=== PATIENT | male | born 1980 | race American Indian/Alaskan Native ===

== ENCOUNTER 2017-05-23 09:15 | Outpatient (CLI) | payer MEDICARE | END 2017-05-23 09:16 | disposition home or self-care (01) | LOC: WOUND 09:15 | PROVIDERS: ATTEND Podiatrist | DX: L89.893 Pressure ulcer of other site, stage 3 (principal); L97.512 Non-pressure chronic ulcer of other part of right foot with fat layer exposed; L97.522 Non-pressure chronic ulcer of other part of left foot with fat layer exposed; G82.21 Paraplegia, complete; F17.200 Nicotine dependence, unspecified, uncomplicated | CPT/HCPCS: 11042; G0463 ==

== ENCOUNTER 2017-05-30 12:56 | Outpatient (CLI) | payer MEDICARE | END 2017-05-30 12:57 | disposition home or self-care (01) | LOC: WOUND 12:56 | PROVIDERS: ATTEND Podiatrist | DX: L89.893 Pressure ulcer of other site, stage 3 (principal); L97.512 Non-pressure chronic ulcer of other part of right foot with fat layer exposed; L89.892 Pressure ulcer of other site, stage 2; L97.522 Non-pressure chronic ulcer of other part of left foot with fat layer exposed; G82.21 Paraplegia, complete; F17.200 Nicotine dependence, unspecified, uncomplicated ==

== ENCOUNTER 2017-06-06 09:19 | Outpatient (CLI) | payer MEDICARE | END 2017-06-06 09:20 | disposition home or self-care (01) | LOC: WOUND 09:19 | PROVIDERS: ATTEND Podiatrist | DX: L89.893 Pressure ulcer of other site, stage 3 (principal); L97.511 Non-pressure chronic ulcer of other part of right foot limited to breakdown of skin; G82.21 Paraplegia, complete; M20.41 Other hammer toe(s) (acquired), right foot; M20.42 Other hammer toe(s) (acquired), left foot; F17.200 Nicotine dependence, unspecified, uncomplicated | CPT/HCPCS: 97597 ==

== ENCOUNTER 2017-06-11 13:34 | Outpatient (CLI) | payer MEDICARE ==
--- NOTE | 2017-06-11 15:59 | XRay Report ---
FINAL REPORT EXAM: XR FOOT 3+V RT HISTORY: INJURY TO RIGHT BIG TOE AND SECOND TECHNIQUE: Five views right foot were performed FINDINGS: Bones are severely demineralized. There is wrapping obscuring portions of the 2nd digit. The distal digits are obscured due to positioning. There is no displaced fracture or dislocation identified. IMPRESSION: Limited due to osteopenia and wrapping material. No definite fracture or dislocation.
== END 2017-06-11 13:35 | disposition home or self-care (01) ==
LOC: XRAY 13:34
PROVIDERS: ATTEND Podiatrist
DX: S99.921A Unspecified injury of right foot, initial encounter (principal); M85.871 Other specified disorders of bone density and structure, right ankle and foot; X58.XXXA Exposure to other specified factors, initial encounter; Y93.89 Activity, other specified; Y92.89 Other specified places as the place of occurrence of the external cause; Y99.8 Other external cause status

== ENCOUNTER 2017-06-13 10:34 | Outpatient (CLI) | payer MEDICARE | END 2017-06-13 10:35 | disposition home or self-care (01) | LOC: WOUND 10:34 | PROVIDERS: ATTEND Podiatrist | DX: L97.512 Non-pressure chronic ulcer of other part of right foot with fat layer exposed (principal); L97.522 Non-pressure chronic ulcer of other part of left foot with fat layer exposed; L97.511 Non-pressure chronic ulcer of other part of right foot limited to breakdown of skin; L89.893 Pressure ulcer of other site, stage 3; G82.21 Paraplegia, complete; M20.41 Other hammer toe(s) (acquired), right foot; M20.42 Other hammer toe(s) (acquired), left foot; M79.672 Pain in left foot; M79.671 Pain in right foot; B35.1 Tinea unguium; F17.200 Nicotine dependence, unspecified, uncomplicated | CPT/HCPCS: 11721 ==

== ENCOUNTER 2018-05-19 07:50 | Outpatient (CLI) | payer MEDICARE | END 2018-05-19 07:51 | disposition home or self-care (01) | LOC: WOUND 07:50 | PROVIDERS: ATTEND Surgery | DX: I87.311 Chronic venous hypertension (idiopathic) with ulcer of right lower extremity (principal); L97.512 Non-pressure chronic ulcer of other part of right foot with fat layer exposed; G82.50 Quadriplegia, unspecified; F17.200 Nicotine dependence, unspecified, uncomplicated | CPT/HCPCS: 11042; G0463; 99215 ==

== ENCOUNTER 2018-05-19 08:55 | Outpatient (CLI) | payer MEDICARE ==
--- NOTE | 2018-05-19 10:51 | XRay Report ---
RIGHT FOOT, 3 views: History: Ulcer. Compared to 06/11/17. Subtle ulceration of the distal great toe is suspected. There is severe osteopenia throughout the right foot. Mild diffuse degenerative changes. No obvious fracture or bony destruction. No convincing evidence for osteomyelitis of the great toe IMPRESSION: Subtle ulceration of the distal great toe but no obvious osteomyelitis on x-ray. Severe osteopenia. Degenerative changes.
== END 2018-05-19 08:56 | disposition home or self-care (01) ==
LOC: XRAY 08:55
PROVIDERS: ATTEND Podiatrist
DX: L97.519 Non-pressure chronic ulcer of other part of right foot with unspecified severity (principal); M85.871 Other specified disorders of bone density and structure, right ankle and foot; M19.071 Primary osteoarthritis, right ankle and foot

== ENCOUNTER 2018-05-26 10:22 | Outpatient (CLI) | payer MEDICARE ==
[2018-05-26] MEDS ORDERED: XYLOCAINE TOPICAL 4% TP ONE (10:33)
[2018-05-26] MEDS ORDERED: AD OINTMENT TP PRN (10:34)
[2018-05-26] MEDS ORDERED: SILVER NITRATE TP ONE (10:34)
== END 2018-05-26 10:23 | disposition home or self-care (01) ==
LOC: WOUND 10:22
PROVIDERS: ATTEND Surgery
DX: L97.516 Non-pressure chronic ulcer of other part of right foot with bone involvement without evidence of necrosis (principal); G82.21 Paraplegia, complete; F17.200 Nicotine dependence, unspecified, uncomplicated

== ENCOUNTER 2018-06-01 12:32 | Outpatient (CLI) | payer MEDICARE ==
[2018-06-01 13:15] LABS: BUN/Creatinine Ratio 20; Blood Urea Nitrogen 6 mg/dL (9-20); Calcium 8.9 mg/dL (8.4-10.2); Hemolysis Index 31
--- NOTE | 2018-06-01 15:18 | Vascular Lab Report ---
PROCEDURE: VL ARTERIAL DUPLEX LE RT TECHNIQUE: Duplex Doppler ultrasound of the right lower extremity arteries was performed with image documentation. HISTORY: rt.foot ulcer COMPARISONS: None . FINDINGS: RIGHT LOWER EXTREMITY: Arterial waveforms: Normal triphasic waveforms were seen within the right distal external iliac ron ry through the right posterior tibial artery. Biphasic waveforms were seen within the right anterior tibial and dorsalis pedis arteries. . Thrombus: None . Stenosis: None . Color signal: Normal . Significant segmental velocity differential: None . There is focal fluid within the soft tissues in the region of the right knee. IMPRESSION: 1. No evidence of right lower extremity arterial stenosis. 2. Nonspecific focal fluid within the soft tissues surrounding the right knee was not completely eval uated. Dedicated ultrasound imaging of this area should be considered. This document is electronically signed by Rosy Magaña., June 01 2018 03:16:01 PM ET
== END 2018-06-01 12:33 | disposition home or self-care (01) ==
LOC: VAS 12:32
PROVIDERS: ATTEND Surgery
DX: I87.311 Chronic venous hypertension (idiopathic) with ulcer of right lower extremity (principal); L97.819 Non-pressure chronic ulcer of other part of right lower leg with unspecified severity
CPT/HCPCS: 36415; 80048

== ENCOUNTER 2018-06-02 10:50 | Outpatient (CLI) | payer MEDICARE ==
[2018-06-02] MEDS ORDERED: XYLOCAINE TOPICAL 4% TP NR (11:08)
[2018-06-02] MEDS ORDERED: SILVER NITRATE TP NR (11:09)
== END 2018-06-02 10:51 | disposition home or self-care (01) ==
LOC: WOUND 10:50
PROVIDERS: ATTEND Surgery
DX: L97.516 Non-pressure chronic ulcer of other part of right foot with bone involvement without evidence of necrosis (principal); G82.21 Paraplegia, complete; F17.200 Nicotine dependence, unspecified, uncomplicated

== ENCOUNTER 2018-06-09 11:05 | Outpatient (CLI) | payer MEDICARE ==
[2018-06-09] MEDS ORDERED: XYLOCAINE TOPICAL 4% TP ONE (11:11)
[2018-06-09] MEDS ORDERED: SILVER NITRATE TP ONE (11:11)
== END 2018-06-09 11:06 | disposition home or self-care (01) ==
LOC: WOUND 11:05
PROVIDERS: ATTEND Surgery
DX: L97.516 Non-pressure chronic ulcer of other part of right foot with bone involvement without evidence of necrosis (principal); G82.21 Paraplegia, complete; F17.200 Nicotine dependence, unspecified, uncomplicated

== ENCOUNTER 2018-06-16 11:29 | Outpatient (CLI) | payer MEDICARE ==
[2018-06-16] MEDS ORDERED: XYLOCAINE TOPICAL 4% TP ONE (12:00)
== END 2018-06-16 11:30 | disposition home or self-care (01) ==
LOC: WOUND 11:29
PROVIDERS: ATTEND Surgery
DX: L97.516 Non-pressure chronic ulcer of other part of right foot with bone involvement without evidence of necrosis (principal); G82.21 Paraplegia, complete; F17.200 Nicotine dependence, unspecified, uncomplicated

== ENCOUNTER 2018-06-19 11:02 | Outpatient (CLI) | payer MEDICARE ==
--- NOTE | 2018-06-19 12:20 | XRay Report ---
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 COMPARISON: None similar. FINDINGS: Frontal and lateral chest radiographs demonstrate normal cardiomediastinal silhouette. Clear lungs without pleural effusions or CHF. Lower cervical fusion hardware. CONCLUSION: No acute chest process, as described. Thank you for the opportunity to participate in this patient's care.
== END 2018-06-19 11:03 | disposition home or self-care (01) ==
LOC: XRAY 11:02
PROVIDERS: ATTEND Surgery
DX: L97.516 Non-pressure chronic ulcer of other part of right foot with bone involvement without evidence of necrosis (principal)
CPT/HCPCS: 71046

== ENCOUNTER 2018-06-23 10:25 | Outpatient (CLI) | payer MEDICARE | END 2018-06-23 10:26 | disposition home or self-care (01) | LOC: WOUND 10:25 | PROVIDERS: ATTEND Surgery | DX: L97.516 Non-pressure chronic ulcer of other part of right foot with bone involvement without evidence of necrosis (principal); M86.671 Other chronic osteomyelitis, right ankle and foot; G82.21 Paraplegia, complete; F17.200 Nicotine dependence, unspecified, uncomplicated ==

== ENCOUNTER 2018-07-01 12:11 | Outpatient (CLI) | payer MEDICARE | END 2018-07-01 12:12 | disposition home or self-care (01) | LOC: WOUND 12:11 | PROVIDERS: ATTEND Surgery | DX: L97.516 Non-pressure chronic ulcer of other part of right foot with bone involvement without evidence of necrosis (principal); M86.671 Other chronic osteomyelitis, right ankle and foot; G82.21 Paraplegia, complete; F17.200 Nicotine dependence, unspecified, uncomplicated | CPT/HCPCS: 99183; G0277 ==

== ENCOUNTER 2018-07-02 12:17 | Outpatient (CLI) | payer MEDICARE, MEDICAID | END 2018-07-02 12:18 | disposition home or self-care (01) | LOC: WOUND 12:17 | PROVIDERS: ATTEND Surgery | DX: L97.516 Non-pressure chronic ulcer of other part of right foot with bone involvement without evidence of necrosis (principal); M86.671 Other chronic osteomyelitis, right ankle and foot; G82.21 Paraplegia, complete; F17.200 Nicotine dependence, unspecified, uncomplicated | CPT/HCPCS: 99183; G0277 ==

== ENCOUNTER 2018-07-03 11:51 | Outpatient (CLI) | payer MEDICARE, MEDICAID | END 2018-07-03 11:52 | disposition home or self-care (01) | LOC: WOUND 11:51 | PROVIDERS: ATTEND Surgery | DX: L97.516 Non-pressure chronic ulcer of other part of right foot with bone involvement without evidence of necrosis (principal); M86.671 Other chronic osteomyelitis, right ankle and foot; G82.21 Paraplegia, complete; F17.200 Nicotine dependence, unspecified, uncomplicated | CPT/HCPCS: 99183; G0277 ==

== ENCOUNTER 2018-07-08 12:48 | Outpatient (CLI) | payer MEDICARE, MEDICAID | END 2018-07-08 12:49 | disposition home or self-care (01) | LOC: WOUND 12:48 | PROVIDERS: ATTEND Surgery | DX: L97.516 Non-pressure chronic ulcer of other part of right foot with bone involvement without evidence of necrosis (principal); G82.21 Paraplegia, complete; M86.671 Other chronic osteomyelitis, right ankle and foot; F17.200 Nicotine dependence, unspecified, uncomplicated | CPT/HCPCS: 11042; G0277; 99183 ==

== ENCOUNTER 2018-07-14 13:56 | Outpatient (CLI) | payer MEDICARE, MEDICAID | END 2018-07-14 13:57 | disposition home or self-care (01) | LOC: WOUND 13:56 | PROVIDERS: ATTEND Surgery | DX: I70.235 Atherosclerosis of native arteries of right leg with ulceration of other part of foot (principal); L97.516 Non-pressure chronic ulcer of other part of right foot with bone involvement without evidence of necrosis; G82.21 Paraplegia, complete; M86.671 Other chronic osteomyelitis, right ankle and foot; F17.200 Nicotine dependence, unspecified, uncomplicated | CPT/HCPCS: 99183; G0277 ==

== ENCOUNTER 2018-07-16 13:24 | Outpatient (CLI) | payer MEDICARE, MEDICAID | END 2018-07-16 13:25 | disposition home or self-care (01) | LOC: WOUND 13:24 | PROVIDERS: ATTEND Surgery | DX: L97.516 Non-pressure chronic ulcer of other part of right foot with bone involvement without evidence of necrosis (principal); G82.21 Paraplegia, complete; M86.671 Other chronic osteomyelitis, right ankle and foot; F17.200 Nicotine dependence, unspecified, uncomplicated | CPT/HCPCS: 99183; G0277 ==

== ENCOUNTER 2018-07-17 11:59 | Outpatient (CLI) | payer MEDICARE | END 2018-07-17 12:00 | disposition home or self-care (01) | LOC: WOUND 11:59 | PROVIDERS: ATTEND Surgery | DX: L97.516 Non-pressure chronic ulcer of other part of right foot with bone involvement without evidence of necrosis (principal); G82.21 Paraplegia, complete; M86.671 Other chronic osteomyelitis, right ankle and foot; F17.200 Nicotine dependence, unspecified, uncomplicated | CPT/HCPCS: 99183; G0277 ==

== ENCOUNTER 2018-07-20 12:39 | Outpatient (CLI) | payer MEDICARE | END 2018-07-20 12:40 | disposition home or self-care (01) | LOC: WOUND 12:39 | PROVIDERS: ATTEND Surgery | DX: L97.516 Non-pressure chronic ulcer of other part of right foot with bone involvement without evidence of necrosis (principal); G82.21 Paraplegia, complete; M86.671 Other chronic osteomyelitis, right ankle and foot; F17.200 Nicotine dependence, unspecified, uncomplicated | CPT/HCPCS: 99183; G0277 ==

== ENCOUNTER 2018-07-21 12:45 | Outpatient (CLI) | payer MEDICARE | END 2018-07-21 12:46 | disposition home or self-care (01) | LOC: WOUND 12:45 | PROVIDERS: ATTEND Surgery | DX: L97.516 Non-pressure chronic ulcer of other part of right foot with bone involvement without evidence of necrosis (principal); G82.21 Paraplegia, complete; M86.671 Other chronic osteomyelitis, right ankle and foot; F17.200 Nicotine dependence, unspecified, uncomplicated | CPT/HCPCS: 99183; G0277 ==

== ENCOUNTER 2018-07-22 12:30 | Outpatient (CLI) | payer MEDICARE | END 2018-07-22 12:31 | disposition home or self-care (01) | LOC: WOUND 12:30 | PROVIDERS: ATTEND Surgery | DX: I70.235 Atherosclerosis of native arteries of right leg with ulceration of other part of foot (principal); L97.516 Non-pressure chronic ulcer of other part of right foot with bone involvement without evidence of necrosis; I70.248 Atherosclerosis of native arteries of left leg with ulceration of other part of lower leg; L97.821 Non-pressure chronic ulcer of other part of left lower leg limited to breakdown of skin; M86.671 Other chronic osteomyelitis, right ankle and foot; G82.21 Paraplegia, complete; G82.20 Paraplegia, unspecified; F17.200 Nicotine dependence, unspecified, uncomplicated | CPT/HCPCS: 99183; G0277 ==

== ENCOUNTER 2018-07-23 12:30 | Outpatient (CLI) | payer MEDICARE | END 2018-07-23 12:31 | disposition home or self-care (01) | LOC: WOUND 12:30 | PROVIDERS: ATTEND Surgery | DX: I70.235 Atherosclerosis of native arteries of right leg with ulceration of other part of foot (principal); L97.516 Non-pressure chronic ulcer of other part of right foot with bone involvement without evidence of necrosis; I70.248 Atherosclerosis of native arteries of left leg with ulceration of other part of lower leg; L97.821 Non-pressure chronic ulcer of other part of left lower leg limited to breakdown of skin; M86.671 Other chronic osteomyelitis, right ankle and foot; G82.21 Paraplegia, complete; G82.20 Paraplegia, unspecified; F17.200 Nicotine dependence, unspecified, uncomplicated | CPT/HCPCS: 99183; G0277 ==

== ENCOUNTER 2018-07-24 12:02 | Outpatient (CLI) | payer MEDICARE, MEDICAID | END 2018-07-24 12:03 | disposition home or self-care (01) | LOC: WOUND 12:02 | PROVIDERS: ATTEND Surgery | DX: I70.235 Atherosclerosis of native arteries of right leg with ulceration of other part of foot (principal); L97.516 Non-pressure chronic ulcer of other part of right foot with bone involvement without evidence of necrosis; I70.248 Atherosclerosis of native arteries of left leg with ulceration of other part of lower leg; L97.821 Non-pressure chronic ulcer of other part of left lower leg limited to breakdown of skin; M86.671 Other chronic osteomyelitis, right ankle and foot; G82.21 Paraplegia, complete; F17.200 Nicotine dependence, unspecified, uncomplicated | CPT/HCPCS: 99183; G0277 ==

== ENCOUNTER 2018-07-27 12:21 | Outpatient (CLI) | payer MEDICARE, MEDICAID | END 2018-07-27 12:22 | disposition home or self-care (01) | LOC: WOUND 12:21 | PROVIDERS: ATTEND Internal Medicine | DX: I70.235 Atherosclerosis of native arteries of right leg with ulceration of other part of foot (principal); L97.516 Non-pressure chronic ulcer of other part of right foot with bone involvement without evidence of necrosis; I70.248 Atherosclerosis of native arteries of left leg with ulceration of other part of lower leg; L97.821 Non-pressure chronic ulcer of other part of left lower leg limited to breakdown of skin; M86.671 Other chronic osteomyelitis, right ankle and foot; G82.21 Paraplegia, complete; F17.200 Nicotine dependence, unspecified, uncomplicated | CPT/HCPCS: 99183; G0277 ==

== ENCOUNTER 2018-07-28 13:06 | Outpatient (CLI) | payer MEDICARE, MEDICAID | END 2018-07-28 13:07 | disposition home or self-care (01) | LOC: WOUND 13:06 | PROVIDERS: ATTEND Surgery | DX: I70.235 Atherosclerosis of native arteries of right leg with ulceration of other part of foot (principal); L97.516 Non-pressure chronic ulcer of other part of right foot with bone involvement without evidence of necrosis; M86.671 Other chronic osteomyelitis, right ankle and foot; G82.21 Paraplegia, complete; F17.200 Nicotine dependence, unspecified, uncomplicated | CPT/HCPCS: 99183; G0277 ==

== ENCOUNTER 2018-07-29 13:01 | Outpatient (CLI) | payer MEDICARE, MEDICAID | END 2018-07-29 13:02 | disposition home or self-care (01) | LOC: WOUND 13:01 | PROVIDERS: ATTEND Surgery | DX: I70.235 Atherosclerosis of native arteries of right leg with ulceration of other part of foot (principal); L97.516 Non-pressure chronic ulcer of other part of right foot with bone involvement without evidence of necrosis; I70.248 Atherosclerosis of native arteries of left leg with ulceration of other part of lower leg; L97.821 Non-pressure chronic ulcer of other part of left lower leg limited to breakdown of skin; M86.671 Other chronic osteomyelitis, right ankle and foot; G82.21 Paraplegia, complete; F17.200 Nicotine dependence, unspecified, uncomplicated | CPT/HCPCS: 99183; G0277 ==

== ENCOUNTER 2018-07-30 12:14 | Outpatient (CLI) | payer MEDICARE, MEDICAID | END 2018-07-30 12:15 | disposition home or self-care (01) | LOC: WOUND 12:14 | PROVIDERS: ATTEND Surgery | DX: I70.235 Atherosclerosis of native arteries of right leg with ulceration of other part of foot (principal); L97.516 Non-pressure chronic ulcer of other part of right foot with bone involvement without evidence of necrosis; I70.248 Atherosclerosis of native arteries of left leg with ulceration of other part of lower leg; L97.821 Non-pressure chronic ulcer of other part of left lower leg limited to breakdown of skin; M86.671 Other chronic osteomyelitis, right ankle and foot; G82.21 Paraplegia, complete; F17.200 Nicotine dependence, unspecified, uncomplicated | CPT/HCPCS: 99183; G0277 ==

== ENCOUNTER 2018-07-31 13:04 | Outpatient (CLI) | payer MEDICARE, MEDICAID | END 2018-07-31 13:05 | disposition home or self-care (01) | LOC: WOUND 13:04 | PROVIDERS: ATTEND Surgery | DX: I70.235 Atherosclerosis of native arteries of right leg with ulceration of other part of foot (principal); L97.516 Non-pressure chronic ulcer of other part of right foot with bone involvement without evidence of necrosis; I70.248 Atherosclerosis of native arteries of left leg with ulceration of other part of lower leg; L97.821 Non-pressure chronic ulcer of other part of left lower leg limited to breakdown of skin; M86.671 Other chronic osteomyelitis, right ankle and foot; G82.21 Paraplegia, complete; F17.200 Nicotine dependence, unspecified, uncomplicated | CPT/HCPCS: 99183; G0277 ==

== ENCOUNTER 2018-08-04 12:30 | Outpatient (CLI) | payer MEDICARE, MEDICAID | END 2018-08-04 12:31 | disposition home or self-care (01) | LOC: WOUND 12:30 | PROVIDERS: ATTEND Surgery | DX: I70.235 Atherosclerosis of native arteries of right leg with ulceration of other part of foot (principal); L97.516 Non-pressure chronic ulcer of other part of right foot with bone involvement without evidence of necrosis; M86.671 Other chronic osteomyelitis, right ankle and foot; G82.21 Paraplegia, complete; F17.200 Nicotine dependence, unspecified, uncomplicated | CPT/HCPCS: 99183; G0277 ==

== ENCOUNTER 2018-08-05 13:33 | Outpatient (CLI) | payer MEDICARE, MEDICAID | END 2018-08-05 13:34 | disposition home or self-care (01) | LOC: WOUND 13:33 | PROVIDERS: ATTEND Surgery | DX: I70.235 Atherosclerosis of native arteries of right leg with ulceration of other part of foot (principal); L97.516 Non-pressure chronic ulcer of other part of right foot with bone involvement without evidence of necrosis; M86.671 Other chronic osteomyelitis, right ankle and foot; G82.21 Paraplegia, complete; F17.200 Nicotine dependence, unspecified, uncomplicated | CPT/HCPCS: 99183; G0277 ==

== ENCOUNTER 2018-08-06 13:27 | Outpatient (CLI) | payer MEDICARE, MEDICAID | END 2018-08-06 13:28 | disposition home or self-care (01) | LOC: WOUND 13:27 | PROVIDERS: ATTEND Surgery | DX: I70.235 Atherosclerosis of native arteries of right leg with ulceration of other part of foot (principal); L97.516 Non-pressure chronic ulcer of other part of right foot with bone involvement without evidence of necrosis; M86.671 Other chronic osteomyelitis, right ankle and foot; G82.21 Paraplegia, complete; F17.200 Nicotine dependence, unspecified, uncomplicated | CPT/HCPCS: 99183; G0277 ==

== ENCOUNTER 2018-08-07 12:30 | Outpatient (CLI) | payer MEDICARE, MEDICAID | END 2018-08-07 12:31 | disposition home or self-care (01) | LOC: WOUND 12:30 | PROVIDERS: ATTEND Surgery | DX: I70.235 Atherosclerosis of native arteries of right leg with ulceration of other part of foot (principal); L97.516 Non-pressure chronic ulcer of other part of right foot with bone involvement without evidence of necrosis; M86.671 Other chronic osteomyelitis, right ankle and foot; G82.21 Paraplegia, complete; F17.200 Nicotine dependence, unspecified, uncomplicated | CPT/HCPCS: 99183; G0277 ==

== ENCOUNTER 2018-08-10 12:56 | Outpatient (CLI) | payer MEDICARE, MEDICAID | END 2018-08-10 12:57 | disposition home or self-care (01) | LOC: WOUND 12:56 | PROVIDERS: ATTEND Surgery | DX: I70.235 Atherosclerosis of native arteries of right leg with ulceration of other part of foot (principal); L97.516 Non-pressure chronic ulcer of other part of right foot with bone involvement without evidence of necrosis; M86.671 Other chronic osteomyelitis, right ankle and foot; G82.21 Paraplegia, complete; F17.200 Nicotine dependence, unspecified, uncomplicated | CPT/HCPCS: 99183; G0277 ==

== ENCOUNTER 2018-08-11 11:18 | Outpatient (CLI) | payer MEDICARE, MEDICAID | END 2018-08-11 11:19 | disposition home or self-care (01) | LOC: WOUND 11:18 | PROVIDERS: ATTEND Surgery | DX: I70.235 Atherosclerosis of native arteries of right leg with ulceration of other part of foot (principal); L97.516 Non-pressure chronic ulcer of other part of right foot with bone involvement without evidence of necrosis; M86.671 Other chronic osteomyelitis, right ankle and foot; G82.21 Paraplegia, complete; F17.200 Nicotine dependence, unspecified, uncomplicated | CPT/HCPCS: 99183; G0277 ==

== ENCOUNTER 2018-08-12 11:07 | Outpatient (CLI) | payer MEDICARE | END 2018-08-12 11:08 | disposition home or self-care (01) | LOC: WOUND 11:07 | PROVIDERS: ATTEND Surgery | DX: I70.235 Atherosclerosis of native arteries of right leg with ulceration of other part of foot (principal); L97.516 Non-pressure chronic ulcer of other part of right foot with bone involvement without evidence of necrosis; M86.671 Other chronic osteomyelitis, right ankle and foot; G82.21 Paraplegia, complete; F17.200 Nicotine dependence, unspecified, uncomplicated | CPT/HCPCS: 11042; G0277; 99183 ==

== ENCOUNTER 2018-08-13 12:30 | Outpatient (CLI) | payer MEDICARE | END 2018-08-13 12:31 | disposition home or self-care (01) | LOC: WOUND 12:30 | PROVIDERS: ATTEND Surgery | DX: I70.235 Atherosclerosis of native arteries of right leg with ulceration of other part of foot (principal); L97.516 Non-pressure chronic ulcer of other part of right foot with bone involvement without evidence of necrosis; M86.671 Other chronic osteomyelitis, right ankle and foot; G82.21 Paraplegia, complete; F17.200 Nicotine dependence, unspecified, uncomplicated | CPT/HCPCS: 99183; G0277 ==

== ENCOUNTER 2018-08-14 12:30 | Outpatient (CLI) | payer MEDICARE | END 2018-08-14 12:31 | disposition home or self-care (01) | LOC: WOUND 12:30 | PROVIDERS: ATTEND Surgery | DX: I70.235 Atherosclerosis of native arteries of right leg with ulceration of other part of foot (principal); L97.516 Non-pressure chronic ulcer of other part of right foot with bone involvement without evidence of necrosis; M86.671 Other chronic osteomyelitis, right ankle and foot; G82.21 Paraplegia, complete; F17.200 Nicotine dependence, unspecified, uncomplicated | CPT/HCPCS: 99183; G0277 ==

== ENCOUNTER 2018-08-17 09:31 | Outpatient (CLI) | payer MEDICARE | END 2018-08-17 09:32 | disposition home or self-care (01) | LOC: WOUND 09:31 | PROVIDERS: ATTEND Surgery | DX: I70.235 Atherosclerosis of native arteries of right leg with ulceration of other part of foot (principal); L97.516 Non-pressure chronic ulcer of other part of right foot with bone involvement without evidence of necrosis; M86.671 Other chronic osteomyelitis, right ankle and foot; G82.21 Paraplegia, complete; F17.200 Nicotine dependence, unspecified, uncomplicated | CPT/HCPCS: 99183; G0277 ==

== ENCOUNTER 2018-08-18 09:50 | Outpatient (CLI) | payer MEDICARE | END 2018-08-18 09:51 | disposition home or self-care (01) | LOC: WOUND 09:50 | PROVIDERS: ATTEND Surgery | DX: I70.235 Atherosclerosis of native arteries of right leg with ulceration of other part of foot (principal); L97.516 Non-pressure chronic ulcer of other part of right foot with bone involvement without evidence of necrosis; M86.671 Other chronic osteomyelitis, right ankle and foot; G82.21 Paraplegia, complete; F17.200 Nicotine dependence, unspecified, uncomplicated | CPT/HCPCS: 99183; G0277 ==

== ENCOUNTER 2018-08-19 10:27 | Outpatient (CLI) | payer MEDICARE, MEDICAID | END 2018-08-19 10:28 | disposition home or self-care (01) | LOC: WOUND 10:27 | PROVIDERS: ATTEND Surgery | DX: I70.235 Atherosclerosis of native arteries of right leg with ulceration of other part of foot (principal); L97.516 Non-pressure chronic ulcer of other part of right foot with bone involvement without evidence of necrosis; M86.671 Other chronic osteomyelitis, right ankle and foot; G82.21 Paraplegia, complete; F17.200 Nicotine dependence, unspecified, uncomplicated | CPT/HCPCS: 99183; G0277 ==

== ENCOUNTER 2018-09-01 09:54 | Outpatient (CLI) | payer MEDICARE, MEDICAID | END 2018-09-01 09:55 | disposition home or self-care (01) | LOC: WOUND 09:54 | PROVIDERS: ATTEND Surgery | DX: I70.235 Atherosclerosis of native arteries of right leg with ulceration of other part of foot (principal); L97.516 Non-pressure chronic ulcer of other part of right foot with bone involvement without evidence of necrosis; M86.671 Other chronic osteomyelitis, right ankle and foot; G82.21 Paraplegia, complete; F17.200 Nicotine dependence, unspecified, uncomplicated | CPT/HCPCS: 82962; G0277; 99183 ==

== ENCOUNTER 2018-09-02 09:07 | Outpatient (CLI) | payer MEDICARE, MEDICAID | END 2018-09-02 09:08 | disposition home or self-care (01) | LOC: WOUND 09:07 | PROVIDERS: ATTEND Surgery | DX: I70.235 Atherosclerosis of native arteries of right leg with ulceration of other part of foot (principal); L97.516 Non-pressure chronic ulcer of other part of right foot with bone involvement without evidence of necrosis; M86.671 Other chronic osteomyelitis, right ankle and foot; G82.21 Paraplegia, complete; F17.200 Nicotine dependence, unspecified, uncomplicated | CPT/HCPCS: 99183; G0277 ==

== ENCOUNTER 2018-09-07 09:53 | Outpatient (CLI) | payer MEDICARE | END 2018-09-07 09:54 | disposition home or self-care (01) | LOC: WOUND 09:53 | PROVIDERS: ATTEND Surgery | DX: I70.235 Atherosclerosis of native arteries of right leg with ulceration of other part of foot (principal); L97.516 Non-pressure chronic ulcer of other part of right foot with bone involvement without evidence of necrosis; M86.671 Other chronic osteomyelitis, right ankle and foot; G82.21 Paraplegia, complete; F17.200 Nicotine dependence, unspecified, uncomplicated | CPT/HCPCS: 99183; G0277 ==

== ENCOUNTER 2018-09-08 09:10 | Outpatient (CLI) | payer MEDICARE | END 2018-09-08 09:11 | disposition home or self-care (01) | LOC: WOUND 09:10 | PROVIDERS: ATTEND Surgery | DX: I70.235 Atherosclerosis of native arteries of right leg with ulceration of other part of foot (principal); L97.516 Non-pressure chronic ulcer of other part of right foot with bone involvement without evidence of necrosis; L89.891 Pressure ulcer of other site, stage 1; M86.671 Other chronic osteomyelitis, right ankle and foot; G82.21 Paraplegia, complete; F17.200 Nicotine dependence, unspecified, uncomplicated | CPT/HCPCS: 11042; G0277; 99183 ==

== ENCOUNTER 2018-09-09 09:54 | Outpatient (CLI) | payer MEDICARE | END 2018-09-09 09:55 | disposition home or self-care (01) | LOC: WOUND 09:54 | PROVIDERS: ATTEND Surgery | DX: I70.235 Atherosclerosis of native arteries of right leg with ulceration of other part of foot (principal); L97.516 Non-pressure chronic ulcer of other part of right foot with bone involvement without evidence of necrosis; L89.891 Pressure ulcer of other site, stage 1; M86.671 Other chronic osteomyelitis, right ankle and foot; G82.21 Paraplegia, complete; F17.200 Nicotine dependence, unspecified, uncomplicated | CPT/HCPCS: G0277 ×2; 99183 ==

== ENCOUNTER 2018-09-10 10:26 | Outpatient (CLI) | payer MEDICARE | END 2018-09-10 10:27 | disposition home or self-care (01) | LOC: WOUND 10:26 | PROVIDERS: ATTEND Surgery | DX: I70.235 Atherosclerosis of native arteries of right leg with ulceration of other part of foot (principal); L97.516 Non-pressure chronic ulcer of other part of right foot with bone involvement without evidence of necrosis; L89.891 Pressure ulcer of other site, stage 1; M86.671 Other chronic osteomyelitis, right ankle and foot; G82.21 Paraplegia, complete; F17.200 Nicotine dependence, unspecified, uncomplicated | CPT/HCPCS: G0277 ×2; 99183 ==

== ENCOUNTER 2018-09-11 09:57 | Outpatient (CLI) | payer MEDICARE | END 2018-09-11 09:58 | disposition home or self-care (01) | LOC: WOUND 09:57 | PROVIDERS: ATTEND Surgery | DX: I70.235 Atherosclerosis of native arteries of right leg with ulceration of other part of foot (principal); L97.516 Non-pressure chronic ulcer of other part of right foot with bone involvement without evidence of necrosis; M86.671 Other chronic osteomyelitis, right ankle and foot; G82.21 Paraplegia, complete; F17.200 Nicotine dependence, unspecified, uncomplicated | CPT/HCPCS: G0277 ×2; 99183 ==

== ENCOUNTER 2018-09-14 10:03 | Outpatient (CLI) | payer MEDICARE | END 2018-09-14 10:04 | disposition home or self-care (01) | LOC: WOUND 10:03 | PROVIDERS: ATTEND Surgery | DX: I70.235 Atherosclerosis of native arteries of right leg with ulceration of other part of foot (principal); L97.516 Non-pressure chronic ulcer of other part of right foot with bone involvement without evidence of necrosis; M86.671 Other chronic osteomyelitis, right ankle and foot; G82.21 Paraplegia, complete; F17.200 Nicotine dependence, unspecified, uncomplicated | CPT/HCPCS: G0277 ×2; 99183 ==

== ENCOUNTER 2018-09-17 10:18 | Outpatient (CLI) | payer MEDICARE | END 2018-09-17 10:19 | disposition home or self-care (01) | LOC: WOUND 10:18 | PROVIDERS: ATTEND Surgery | DX: I70.235 Atherosclerosis of native arteries of right leg with ulceration of other part of foot (principal); L97.516 Non-pressure chronic ulcer of other part of right foot with bone involvement without evidence of necrosis; M86.671 Other chronic osteomyelitis, right ankle and foot; G82.21 Paraplegia, complete; F17.200 Nicotine dependence, unspecified, uncomplicated | CPT/HCPCS: 99213; G0463 ==